=== PATIENT | male | born 1980 | race Caucasian/White ===

== ENCOUNTER 2018-03-04 21:06 | Emergency (ER) | payer BC ==
[~2018-03-04 21:06] MED LIST: Sterile Water Irrigation 250 ML BOT ONE
[2018-03-04] MEDS ORDERED: Lidocaine 1% 20 ML MDV ONE (21:21)
[2018-03-04] MEDS ORDERED: Lidocaine 1% (PF) 30 ML VIAL ONE (21:22)
[2018-03-04] MEDS ORDERED: Lidocaine 1% w/Epinephrine 1:100K 30 ML VIAL ONE (21:23)
[2018-03-04] MEDS ORDERED: Bacitracin Zinc 1 Packet ONE (21:39)
== END 2018-03-04 21:50 | disposition home or self-care (01) ==
LOC: MADERS 21:06
DX: S01.81XA Laceration without foreign body of other part of head, initial encounter (principal); W22.8XXA Striking against or struck by other objects, initial encounter
CPT/HCPCS: 12011; J2001